=== PATIENT | male | born 1935 | race Caucasian/White ===

== ENCOUNTER 2021-04-29 20:41 | Emergency (ER) | payer MEDICARE, SELFPAY ==
--- NOTE | 2021-04-29 20:48 | ECG_ITS ---
[facility] ED Test Date: 2021-04-29 Pat Name: MARISELA UPTON Department: Room: Gender: Male [employer]: : 1935 Requested By: Jesusita Cross Order Number: [id number] Jeri MD: Nirmala Mullins M.D. Measurements Intervals [place] Rate: 109 P: 54 LA: 121 QRS: 41 QRSD: 77 T: 52 QT: 339 QTc: 458 Interpretive Statements SINUS TACHYCARDIA ABNORMAL RHYTHM ECG No previous ECG available for comparison Electronically Signed On 05-05-2021 0:31:41 CDT by Nirmala Mullins M.D. [id number]
[2021-04-29 21:02] VITALS: BP 114/78; PULSE 116; RESP 16; TEMP 36.6; O2SAT 97; BMI 28.5
[2021-04-29 21:14] VITALS: BP 114/78; PULSE 109; RESP 18
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
[2021-04-29] MEDS: LORazepam 1 mg Tablet PO (21:28)
[2021-04-29 21:35] LABS: Basophils # 0.1 10^3/uL (0.0-0.1); Basophils % 0.6 %; Eosinophils # 0.2 10^3/uL (0.0-0.8); Eosinophils % 2.5 %; Hemoglobin 12.8 g/dL (11.7-16.6); Lymphocytes # 1.2 10^3/uL (0.8-4.8); Mean Corpuscular HGB Conc 32.8 g/dL (30.0-36.0); Mean Corpuscular Hemoglobin 29.6 pg (28.0-34.0); Mean Corpuscular Volume 90.3 fL (80-94); Mean Platelet Volume 10.7 fL (7.4-10.4); Monocytes % 11.4 %; Neutrophils # 6.08 10^3/uL (1.8-7.7); Neutrophils % 71.1 %; Nucleated Red Blood Cells % 0 %; Platelet Count 277 10^3/cmm (130-400); Red Blood Count 4.32 10^6/uL (4.1-5.3); Red Cell Distribution Width 13.2 % (12.1-15.1); White Blood Count 8.5 10^3/uL (4.0-10.0)
[2021-04-29 21:55] LABS: Alanine Aminotransferase 17 U/L (0-41); Albumin Level 4.2 g/dL (3.5-5.2); Alkaline Phosphatase 87 IU/L (40-130); Anion Gap 20.6 (5-19); Aspartate Amino Transferase 16 U/L (0-40); Blood Urea Nitrogen 25 mg/dL (8-23); Calcium 9.4 mg/dL (8.5-10.5); Carbon Dioxide 16 mmol/L (22-29); Chloride 106 mmol/L (98-107); Globulin 2.2 g/dL (1.3-4.6); Glucose 105 mg/dL (65-115); Osmolality Calculated 291 mOsm/kg (285-295); Potassium 4.6 mmol/L (3.5-5.1); Sodium 138 mmol/L (136-145); Total Bilirubin 0.5 mg/dL (0.15-1.2); Total Protein 6.4 g/dL (6.6-8.7)
[2021-04-29 22:01] LABS: Acetaminophen < 5.0 ug/mL (10-30); Alcohol Level < 10 mg/dL (0-10); Salicylate < 0.3 mg/dL (3-10)
[2021-04-29 22:11] LABS: SARS Covid-2 Antigen Negative (Negative)
[2021-04-29] MEDS: OLANZapine 10 mg ODT PO (22:44)
[2021-04-29 23:01] LABS: Amphetamines Screen Urine Negative (Negative); Barbiturates Screen Urine Negative (Negative); Benzodiazepines Screen Urine Negative (Negative); Cocaine Screen Urine Negative (Negative); Opiate Screen Urine Negative (Negative); PCP Screen Urine Negative (Negative); THC Screen Urine Negative (Negative)
[2021-04-29 23:26] VITALS: BP 134/65; PULSE 91; RESP 22; O2SAT 97
[2021-04-30] VITALS (12 sets, daily range): BP systolic 132–190; BP diastolic 75–108; PULSE 74–110; RESP 15–22; TEMP 36.8; O2SAT 96–99
[2021-04-30] MEDS: LORazepam 2 mg/mL INJ 1 mL IM ×2 (00:21→07:56)
--- NOTE | 2021-04-30 00:22 | PC.NURSE ---
while attempting to hand off reports sitter requesting medications be pulled. Upon entering pt room pt noted to be in the bed with Security, rico RN, and Lanette RN verbally redirecting pt. medications pulled and administered as ordered by
--- NOTE | 2021-04-30 12:51 | DCPLANNER ---
Addendum entered by Yesy Duong 04/30/21 14:13: [facility] called back and stated that they would accept patient. warehouse manager informed physician, and charge nurse that patient was accepted. Original Note: warehouse manager was asked to look for placement for patient. warehouse manager was told that [facility] has declined patient. warehouse manager called the following facilities: [facility] - left voicemail [facility] at [facility] - faxed information at 11:30 [facility] - faxed information - patient was declined. [facility] - information faxed.
[2021-04-30] MEDS: haloperidol inj 5 mg/mL INJ 1 mL IM (13:51)
== END 2021-04-30 15:45 ==
PROVIDERS: Emergency Medicine; Emergency Provider Emergency Medicine
DX: F23 Brief psychotic disorder (principal); F03.90 Unspecified dementia, unspecified severity, without behavioral disturbance, psychotic disturbance, mood disturbance, and anxiety; Z78.1 Physical restraint status
CPT/HCPCS: 80053; 80306; 80307; 85025; 87426; 93005; 96372; 99285; J1630; J2060; J3490

== ENCOUNTER 2022-06-11 14:42 | Emergency (ER) | payer MEDICARE, SELFPAY ==
[2022-06-11 14:53] VITALS: BP 124/71; PULSE 73; RESP 12; TEMP 36.4; O2SAT 88
--- NOTE | 2022-06-11 15:06 | XR_ITS ---
WS: [id number] Portable AP upright chest, 06/11/2022 Clinical Data: dyspnea/cough Comparison: None. Findings: No nodules, masses or effusions are seen. The heart is normal. The pulmonary vascularity is not increased. No pneumonia or pneumothorax is seen. The aortic arch and descending thoracic aorta s how tortuosity. There are monitor leads on the chest wall. There is a slight dextroscoliosis of the t horacic spine. XR/XR chest 1V portable [id number] Impression: Atherosclerosis.
--- NOTE | 2022-06-11 15:06 | ECG_ITS ---
[facility] Test Date: 2022-06-11 Pat Name: Earle Limon Department: Room: Gender: Male [employer] Marketing Team Leader: : 1935 Requested By: Sonido Carreno Order Number: [id number] Jeri MD: Guilherme Morrison M.D. Measurements Intervals [place] Rate: 78 P: 58 VA: 127 QRS: 66 QRSD: 89 T: 76 QT: 417 QTc: 475 Interpretive Statements SINUS RHYTHM LOW QRS VOLTAGE IN PRECORDIAL LEADS [QRS DEFLECTION < 1.0 mV IN CHEST LEADS] Compared to ECG 04/29/2021 21:13:40 Low QRS voltage now present Sinus tachycardia no longer present Electronically Signed On 06-12-2022 14:29:35 CDT by Guilherme Morrison M.D. [id number]
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
[2022-06-11 15:55] LABS: Basophils % 0.7 %; Eosinophils # 0.1 10^3/uL (0.0-0.8); Eosinophils % 2.6 %; Hematocrit 33.2 % (42.0-52.0); Hemoglobin 10.3 g/dL (11.7-16.6); Lymphocytes # 0.5 10^3/uL (0.8-4.8); Lymphocytes % 11.4 %; Mean Corpuscular Hemoglobin 30.1 pg (28.0-34.0); Mean Corpuscular Volume 97.1 fl (80-94); Mean Platelet Volume 10.4 fL (7.4-10.4); Monocytes # 0.5 10^3/uL (0.2-0.9); Monocytes % 12.5 %; Neutrophils # 3.13 10^3/uL (1.8-7.7); Neutrophils % 72.6 %; Nucleated Red Blood Cells % 0 %; Platelet Count 189 10^3/cmm (130-400); Red Blood Count 3.42 10^6/uL (4.1-5.3); Red Cell Distribution Width 13.1 % (12.1-15.1); White Blood Count 4.3 10^3/uL (4.0-10.0)
[2022-06-11 16:19] LABS: Alanine Aminotransferase 12 U/L (0-41); Albumin Level 3.7 g/dL (3.5-5.2); Alkaline Phosphatase 74 U/L (40-130); Anion Gap 14.7 (5-19); Aspartate Amino Transferase 14 U/L (0-40); Blood Urea Nitrogen 39 mg/dL (8-23); Calcium 8.8 mg/dL (8.5-10.5); Carbon Dioxide 26 mmol/L (22-29); Chloride 102 mmol/L (98-107); Globulin 2.3 g/dL (1.3-4.6); Glucose 107 mg/dL (65-115); Osmolality Calculated 296 mOsm/kg (285-295); Potassium 4.7 mmol/L (3.5-5.1); Sodium 138 mmol/L (136-145); Total Bilirubin 0.2 mg/dL (0.15-1.2)
[2022-06-11 16:28] LABS: Troponin(5th) Baseline 37 ng/L (0-15)
[2022-06-11 16:54] VITALS: BP 134/71; PULSE 78; RESP 18; O2SAT 96
--- NOTE | 2022-06-11 17:06 | ECG_ITS ---
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 Measurements Intervals [place] Rate: 72 P: 70 [place]: 142 QRS: 45 QRSD: 80 T: 53 QT: 408 QTc: 447 Interpretive Statements SINUS RHYTHM Compared to ECG 06/11/2022 15:18:47 No significant changes Electronically Signed On 06-12-2022 14:40:17 CDT by Guilherme Morrison M.D. [id number]
[2022-06-11 17:11] LABS: Add Urine Microscopic? NO; Charge for UA Resulting for Rev
[2022-06-11 17:15] LABS: Bilirubin Urine Neg (Negative); Blood Urine Neg (Negative); Glucose Urine UA Norm (Normal); Ketones Urine Negative (Negative); Leukocyte Esterase Urine Negative (Negative); Nitrate Urine Negative (Negative); Protein Urine Neg (Negative); Specific Gravity, Urine 1.015 (1.005-1.030); Urine Appearance Clear (CLEAR); Urine Color Yellow (Yellow); Urobilinogen Urine Norm (Negative); pH Urine 6 (5-7)
--- NOTE | 2022-06-11 18:18 | CTR_ITS ---
PROCEDURE INFORMATION: Exam: CT Head Without Contrast Exam date and time: 06/11/2022 6:31 PM Age: 86 years old Clinical indication: Condition or disease; Other: Dementia; Altered mental status/memory loss; Additional info: AMS TECHNIQUE: Imaging protocol: Computed tomography of the head without contrast. Sagittal and coronal reformatted images were created and reviewed. Radiation optimization: All CT scans at this facility use at least one of these dose optimization techniques: automated exposure control; mA and/or kV adjustment per patient size (includes targeted exams where dose is matched to clinical indication); or iterative reconstruction. COMPARISON: No relevant prior studies available. RADIATION DOSE METRICS: Total DLP (mGy-cm): 1317.98 FINDINGS: Brain: No acute intracranial hemorrhage. No acute infarct. No intra-axial or extra-axial masses. Anderson-white matter differentiation is preserved. No cerebral edema. No extra-axial fluid collections. No midline shift. No evidence for Chiari 1 malformation. Mild atrophy of the brain parenchyma. Mildly decreased attenuation in the deep white matter, consistent with mild chronic microangiopathic change. Cerebral ventricles: No hydrocephalus. Paranasal sinuses: Small mucus retention cyst in the the visualized right maxillary sinus. Other visualized paranasal sinuses are clear. Mastoid air cells: Visualized mastoid air cells are clear. Orbital cavities: Globes, extraocular muscles, and optic nerves are intact bilaterally. No acute intraorbital abnormality. Nasal cavity: Mild right nasal septal deviation. Bones/joints: No acute fracture. Soft tissues: No acute abnormality of the extracranial soft tissues. Vasculature: Mild atherosclerotic changes in the visualized arteries. CT/CT head wo con* [id number] IMPRESSION: 1. No acute abnormality of the brain. 2. Mild atrophy of the brain parenchyma. 3. Mild chronic white matter microangiopathic change. 4. Incidental/nonacute findings are listed in the report.
[2022-06-11 18:26] VITALS: BP 134/71; PULSE 77; RESP 16; O2SAT 93
[2022-06-11 18:32] LABS: Troponin 5 2HR 33.95 ng/L (0-15)
[2022-06-11 18:43] VITALS: BP 145/91; PULSE 86; RESP 16; O2SAT 97
[2022-06-11 19:02] LABS: Troponin 5 2HR Delta -3.05 ABS# (0-10)
[2022-06-11] MEDS: haloperidol inj 5 mg/mL INJ 1 mL IM (19:51)
[2022-06-11] MEDS: LORazepam 1 mg Tablet PO (20:00)
[2022-06-11] MEDS: midazolam 1 mg/mL INJ 2 mL IM (20:15)
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
[2022-06-11 20:44] VITALS: PULSE 87; RESP 16; O2SAT 95
== END 2022-06-11 20:47 | disposition home or self-care (01) ==
PROVIDERS: Family Medicine; Emergency Provider Emergency Medicine
DX: R41.82 Altered mental status, unspecified (principal); F03.90 Unspecified dementia, unspecified severity, without behavioral disturbance, psychotic disturbance, mood disturbance, and anxiety; Z79.82 Long term (current) use of aspirin
CPT/HCPCS: 36415; 70450; 71045; 80053; 81003; 84484; 85025; 93005; 96372; 99285; J1630; J2250

== ENCOUNTER 2022-07-08 19:08 | Emergency (ER) | payer MEDICARE, SELFPAY ==
[2022-07-08 19:09] VITALS: BP 144/60; PULSE 17; RESP 17; TEMP 36.6; O2SAT 96; BMI 26.4
--- NOTE | 2022-07-08 19:09 | XRR_ITS ---
PROCEDURE INFORMATION: Exam: XR Chest Exam date and time: 07/08/2022 7:20 PM Age: 86 years old Clinical indication: Dyspnea TECHNIQUE: Imaging protocol: Radiologic exam of the chest. Views: 1 view. COMPARISON: CR XR chest 1V portable [id number] 06/11/2022 3:23 PM FINDINGS: Lungs: Unremarkable. No consolidation. Pleural spaces: Unremarkable. No pleural effusion. No pneumothorax. Heart/Mediastinum: Unremarkable. No cardiomegaly. Bones/joints: Lower cervical spine ACDF. No thoracic fracture. XR/XR chest 1V portable [id number] IMPRESSION: Negative exam.
--- NOTE | 2022-07-08 19:09 | CTR_ITS ---
PROCEDURE INFORMATION: Exam: CT Head Without Contrast Exam date and time: 07/08/2022 7:40 PM Age: 86 years old Clinical indication: Altered mental status/memory loss; Additional info: AMS TECHNIQUE: Imaging protocol: Computed tomography of the head without contrast. Radiation optimization: All CT scans at this facility use at least one of these dose optimization techniques: automated exposure control; mA and/or kV adjustment per patient size (includes targeted exams where dose is matched to clinical indication); or iterative reconstruction. COMPARISON: CT head wo con* [id number] 06/11/2022 6:31 PM RADIATION DOSE METRICS: Total DLP (mGy-cm): 1514.58 FINDINGS: Brain: There is moderate cerebral atrophy. Negative for intracranial hemorrhage. Negative for intracranial mass. Negative for midline shift of the brain. Right basal ganglia lacunar infarct versus dilated perivascular space stable from comparison. Cerebral ventricles: No ventriculomegaly. Paranasal sinuses: Visualized sinuses are unremarkable. No fluid levels. Mastoid air cells: Visualized mastoid air cells are well aerated. Bones/joints: Unremarkable. No acute fracture. Soft tissues: Unremarkable. CT/CT head wo con* [id number] IMPRESSION: Negative for acute intracranial abnormality.
--- NOTE | 2022-07-08 19:10 | ECG_ITS ---
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 Measurements Intervals [place] Rate: 88 P: 63 [place]: 116 QRS: 68 QRSD: 94 T: 72 QT: 394 QTc: 477 Interpretive Statements SINUS RHYTHM WITH SHORT [place] INTERVAL Compared to ECG 06/11/2022 18:24:35 Short [place] interval now present Electronically Signed On 07-08-2022 20:56:29 CDT by Baylee Moon M.D. [id number]
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
[2022-07-08 20:22] LABS: Basophils % 0.6 %; Eosinophils # 0.1 10^3/uL (0.0-0.8); Eosinophils % 2.3 %; Hematocrit 33.9 % (42.0-52.0); Hemoglobin 10.7 g/dL (11.7-16.6); Lymphocytes # 0.7 10^3/uL (0.8-4.8); Lymphocytes % 13.3 %; Mean Corpuscular HGB Conc 31.6 g/dL (30.0-36.0); Mean Corpuscular Hemoglobin 29.6 pg (28.0-34.0); Mean Corpuscular Volume 93.9 fl (80-94); Monocytes # 0.6 10^3/uL (0.2-0.9); Monocytes % 13.1 %; Neutrophils # 3.42 10^3/uL (1.8-7.7); Neutrophils % 70.3 %; Nucleated Red Blood Cells % 0 %; Platelet Count 258 10^3/cmm (130-400); Red Blood Count 3.61 10^6/uL (4.1-5.3); Red Cell Distribution Width 12.6 % (12.1-15.1); White Blood Count 4.9 10^3/uL (4.0-10.0)
[2022-07-08 20:26] LABS: Add Urine Microscopic? NO; Charge for UA Resulting for Rev
[2022-07-08 20:36] LABS: Amphetamines Screen Urine Negative (Negative); Barbiturates Screen Urine Negative (Negative); Benzodiazepines Screen Urine Positive (Negative); Cocaine Screen Urine Negative (Negative); Opiate Screen Urine Negative (Negative); PCP Screen Urine Negative (Negative); THC Screen Urine Negative (Negative)
[2022-07-08 20:46] LABS: Troponin(5th) Baseline 43 ng/L (0-15)
[2022-07-08 20:47] LABS: Alanine Aminotransferase 13 U/L (0-41); Albumin Level 3.6 g/dL (3.5-5.2); Alkaline Phosphatase 90 U/L (40-130); Anion Gap 13.9 (5-19); Aspartate Amino Transferase 21 U/L (0-40); Blood Urea Nitrogen 40 mg/dL (8-23); Calcium 8.7 mg/dL (8.5-10.5); Carbon Dioxide 25 mmol/L (22-29); Chloride 103 mmol/L (98-107); Globulin 2.6 g/dL (1.3-4.6); Glucose 88 mg/dL (65-115); Lipase 21 U/L (13-60); Osmolality Calculated 293 mOsm/kg (285-295); Potassium 4.9 mmol/L (3.5-5.1); Sodium 137 mmol/L (136-145); Total Bilirubin 0.3 mg/dL (0.15-1.2); Total Protein 6.2 g/dL (6.6-8.7)
[2022-07-08 20:51] LABS: Bilirubin Urine Neg (Negative); Blood Urine Neg (Negative); Glucose Urine UA Norm (Normal); Ketones Urine Negative (Negative); Leukocyte Esterase Urine Negative (Negative); Nitrate Urine Negative (Negative); Protein Urine Neg (Negative); Specific Gravity, Urine 1.015 (1.005-1.030); Urine Appearance Clear (CLEAR); Urine Color Yellow (Yellow); Urobilinogen Urine Norm (Negative); pH Urine 5 (5-7)
[2022-07-08 20:52] LABS: Acetaminophen < 5.0 ug/mL (10-30); Salicylate < 0.3 mg/dL (3-10)
[2022-07-08 21:15] VITALS: BP 136/75; PULSE 88; RESP 15; O2SAT 98
[2022-07-08 22:40] LABS: Troponin 5 2HR 41.72 ng/L (0-15)
[2022-07-08 22:41] LABS: Troponin 5 2HR Delta -1.28 ABS# (0-10)
[2022-07-08 23:15] VITALS: BP 135/68; PULSE 86; RESP 18; O2SAT 99
[2022-07-08 23:20] LABS: Alcohol Level < 10 mg/dL (0-10)
[2022-07-08 23:32] LABS: SARS Covid-2 Antigen negative (Negative)
--- NOTE | 2022-07-09 01:10 | ECG_ITS ---
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 Measurements Intervals [place] Rate: 82 P: 67 ND: 148 QRS: 52 QRSD: 89 T: 69 QT: 410 QTc: 480 Interpretive Statements SINUS RHYTHM Compared to ECG 07/08/2022 20:28:36 Short ND interval no longer present Electronically Signed On 07-09-2022 12:53:11 CDT by Nirmala Mullins M.D. [id number]
[2022-07-09 02:00] VITALS: PULSE 90; RESP 18
[2022-07-09 03:00] VITALS: PULSE 85; RESP 19
[2022-07-09 05:00] VITALS: PULSE 90; RESP 16
[2022-07-09 06:00] VITALS: PULSE 78; RESP 17
--- NOTE | 2022-07-09 10:39 | PC.SOCIAL ---
[facility] reported that they would not be able to come and pick patient up until a new LR903L and level 2 was submitted since patient was here past midnight. RUBINA questioned the accuracy of this, it was reported that is what their weblogic administrator told them. CM requested to speak to their weblogic administrator, was told she was in a meeting and my name/number was taken for a return call. CM asked for time that they would be here to pick patient up. She states that she will check on their transportation and call CM back. RUBINA called [facility] and spoke with Judie. Explained patient's situation. She states that since patient was not admitted inpatient psych nothing was needed to be done by the hospital. The facility, [facility], would need to monitor patient and if he exhibits 2 or more changes per [facility] guidelines, then [facility] would need to submit for a change of status. She states that their weblogic administrator can call them for clarification if needed. She confirms that patient being in ER overnight has no effect on DA124 or level twos.
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
--- NOTE | 2022-07-09 11:38 | PC.NURSE ---
Pt aggiated and will not stay in bed and is walking around the room. He is angry with staff. He refuses to sit down and you can not talk with him
[2022-07-09 13:34] VITALS: BP 135/68; PULSE 78; RESP 17; TEMP 36.6
== END 2022-07-09 13:40 | disposition home or self-care (01) ==
PROVIDERS: Emergency Medicine; Emergency Provider Family Medicine
DX: R45.6 Violent behavior (principal); Z79.82 Long term (current) use of aspirin; Z20.822 Contact with and (suspected) exposure to COVID-19
CPT/HCPCS: 70450; 71045; 80053; 80306; 80307; 81003; 83690; 84484; 85025; 87426; 93005; 99285